=== PATIENT | female | born 1945 | race Caucasian/White ===

== ENCOUNTER → 2017-05-16 | Outpatient (CLI) | payer OTHER ==
[~2017-05-16] MED LIST: AMBEREN; CALCIUM; MAGNES; NAPROSYN375 MG PO; VITAMIN D1000 UNI1; ZOLOFT100 MG
== END ==
LOC: RAD 02:34
DX: Z12.31 Encounter for screening mammogram for malignant neoplasm of breast (principal)

== ENCOUNTER → 2018-07-24 | Outpatient (CLI) | payer OTHER | LOC: RAD 11:57 | DX: M25.511 Pain in right shoulder (principal); M25.561 Pain in right knee; M25.562 Pain in left knee ==

== ENCOUNTER → 2018-07-24 | Outpatient (CLI) | payer OTHER | LOC: RAD 03:10 | DX: Z12.31 Encounter for screening mammogram for malignant neoplasm of breast (principal) ==

== ENCOUNTER → 2019-08-24 | Outpatient (CLI) | payer OTHER | LOC: CAT 15:39 | DX: K57.30 Diverticulosis of large intestine without perforation or abscess without bleeding (principal); I70.0 Atherosclerosis of aorta; M41.86 Other forms of scoliosis, lumbar region; M51.36 Other intervertebral disc degeneration, lumbar region; Z90.49 Acquired absence of other specified parts of digestive tract; Z90.710 Acquired absence of both cervix and uterus; Z98.890 Other specified postprocedural states ==

== ENCOUNTER → 2019-10-15 | Outpatient (CLI) | payer OTHER | LOC: BC 09:16 | PROVIDERS: ATTEND Family Medicine | DX: Z12.31 Encounter for screening mammogram for malignant neoplasm of breast (principal) ==

== ENCOUNTER → 2021-01-22 | Outpatient (CLI) | payer OTHER | LOC: BC 14:02 | PROVIDERS: ATTEND Family Medicine | DX: Z12.31 Encounter for screening mammogram for malignant neoplasm of breast (principal) ==